=== PATIENT | male | born 1990 | race Two or more races ===

== ENCOUNTER 2018-02-17 06:14 | Emergency (ER) | payer BC, MEDICAID ==
[~2018-02-17] VITALS: Ht 167.6 cm; Wt 74.8 kg
[2018-02-17 06:32] VITALS: BP 132/82
[2018-02-17 07:12] VITALS: BP 132/82
[2018-02-17] MEDS ORDERED: BACTRIM DS TAB1 EAC1 ORAL (09:58)
--- NOTE | 2018-02-17 09:59 | Emergency Room Report ---
History of Present Illness General Chief Complaint: General Complaint Source: Patient Present Illness HPI 27-year-old male presents ED for evaluation. States that his roommate has "staph infection" and he believes he is having a staph infection as well. Started about 4 days ago. Notes multiple bumps on the right side of his face. Denies fevers or chills. Pain is dull, 3 out of 10, nonradiating. Denies recent travel. No other aggravating relieving factors. Denies any other associated symptoms Allergies: Coded Allergies: PEANUT (Verified Adverse Reaction, Mild, 02/17/18) upset stoumach Patient History Past Medical History: none Past Surgical History: none Pertinent Family History: none Social History: Denies: smoking, alcohol use, drug use Immunizations: UTD Reviewed Nursing Documentation: PMH: Agreed; PSxH: Agreed Nursing Documentation-PMH Past Medical History: No Stated History Review of Systems All Other Systems: negative except mentioned in HPI Physical Exam Vital Signs Date Time Temp Pulse Resp B/P (MAP) Pulse Ox O2 Delivery O2 Flow Rate FiO2 02/17/18 06:16 97.9 102 18 135/83 95 02/17/18 07:12 Room Air Sp02 EP Interpretation: reviewed, normal General Appearance: no apparent distress, alert, GCS 15, non-toxic Head: normocephalic Eyes: bilateral eye normal inspection, bilateral eye PERRL ENT: normal ENT inspection Neck: normal inspection Respiratory: normal inspection Cardiovascular #1: normal inspection Gastrointestinal: normal inspection Rectal: deferred Genitourinary: no CVA tenderness Musculoskeletal: normal inspection Neurologic: alert, oriented x3, responsive, motor strength/tone normal, sensory intact, speech normal Psychiatric: normal inspection Skin: other - multiple erythematous bumps on right side of face. nonerythematous base. no fluctuance or discharge Lymphatic: normal inspection Medical Decision Making Diagnostic Impression: Primary Impression: Folliculitis ER Course Hospital Course 27-year-old male presents with rash to face. Roommate with staph infection Differential diagnoses include: Cellulitis, dermatitis, insect bite, abscess Clinical course Patient placed on stretcher. After initial history, physical exam reveals a male in no acute distress. On exam there are erythematous bumps to the right lower jaw. Nonerythematous base. No fluctuance or discharge. Patient does appear nontoxic, afebrile. System and folliculitis. We'll discharge on antibiotics based on story of staph infection in roomate Safe for discharge close outpatient follow-up. Diagnosis - follicultiis stable and discharged to home with prescription for bactrim. Instructed to followup with PMD. Instructed return to ED if symptoms recur or worsen Last Vital Signs Date Time Temp Pulse Resp B/P (MAP) Pulse Ox O2 Delivery O2 Flow Rate FiO2 02/17/18 07:12 98.2 98 16 132/72 100 Room Air Status: improved Disposition: HOME, SELF-CARE Condition: Stable Scripts Trimethoprim/Sulfamethoxazole 160/800* (BACTRIM DS TABLET*) 1 Each Tablet 1 TAB ORAL Q12H, #14 TAB 0 Refills Prov: Alex Iverson MD 02/17/18 Referrals: NOT CHOSEN IPA/,REFERRING (PCP) Alex Iverson MD Feb 17, 2018 09:59
== END 2018-02-17 07:12 | disposition home or self-care (01) ==
LOC: EMR 06:41
DX: L73.9 Follicular disorder, unspecified (principal); Z91.010 Allergy to peanuts
CPT/HCPCS: 99282